=== PATIENT | male | born 1985 | race Caucasian/White ===

== ENCOUNTER 2021-06-26 13:35 | Emergency (ER) | payer OTHER, SELFPAY ==
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
[2021-06-26 13:37] VITALS: BP 128/76; PULSE 83; RESP 17; TEMP 36.1; O2SAT 100
--- NOTE | 2021-06-26 13:50 | PC.NURSE ---
assistant district attorney aware of, pt, waiting for direction on room assignment.
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
--- NOTE | 2021-06-26 14:50 | PC.NURSE ---
Patient to X-Ray.
[2021-06-26] MEDS: IBUPROFEN 400 MG TABLET 800 MG PO (15:07)
== END 2021-06-26 15:42 | disposition home or self-care (01) ==
PROVIDERS: Emergency Provider Emergency Medicine
DX: S40.011A Contusion of right shoulder, initial encounter (principal); V68.5XXA Driver of heavy transport vehicle injured in noncollision transport accident in traffic accident, initial encounter
CPT/HCPCS: 73030; 99283; A4565; A9270